=== PATIENT | female | born 1960 | race Caucasian/White ===

== ENCOUNTER 2022-10-09 10:42 | Inpatient (IN) | payer MEDICAID ==
[~2022-10-09] VITALS: Ht 152.4 cm; Wt 54.4 kg
--- NOTE | 2022-10-09 11:00 | NUR ---
BIBA RA78 From Home "generalized weakness xcouple days worse now" BS- 163. PLACED IN BED, AAOX4, BREATHING EVEN AND UNLABORED SATURATING AT 98%RA.
--- NOTE | 2022-10-09 11:23 | NUR ---
PORTACATH AT RIGHT CHEST ACCESSED ASSEPTICALLY, BLOOD SAMPLE OBTAINED , LABELED THEN SENT TO LAB .
--- NOTE | 2022-10-09 11:24 | NUR ---
BLOOD DRAWN AND SENT TO LAB
[2022-10-09 11:33] LABS: BASOPHILS % (AUTO) 0.5 % (0.0-2.0); EOSINOPHILS % (AUTO) 0.6 % (0.0-6.0); HEMATOCRIT 28 % (33-45); LYMPHOCYTES # (AUTO) 2.6 K/uL (0.8-4.8); MEAN CORPUSCULAR HGB CONC 32 g/dl (31.0-36.0); MEAN CORPUSCULAR VOLUME 90 fL (82-100); MONOCYTES # (AUTO) 0.4 K/uL (0.1-1.30); MONOCYTES % (AUTO) 7.8 % (2.0-12.0); NEUTROPHILS % (AUTO) 39.1 % (43.0-81.0); PLATELET COUNT (AUTO) 124 K/uL (150-450); RED BLOOD CELL COUNT(AUTO) 3.13 MIL/uL (4.0-5.2); WHITE BLOOD COUNT (AUTO) 5.1 K/uL (4.3-11.0)
[2022-10-09 11:47] LABS: CALCIUM, SERUM 11.3 mg/dL (8.5-10.1); CARBON DIOXIDE 24 mmol/L (21-32); CHLORIDE 105 mmol/L (98-107); CREATININE 1.2 mg/dL (0.6-1.3); GLUCOSE 128 mg/dL (74-106); POTASSIUM 4.4 mmol/L (3.5-5.1); SODIUM SERUM 135 mmol/L (136-145); UREA NITROGEN, BLOOD 29 mg/dL (7-18)
--- NOTE | 2022-10-09 11:53 | NUR ---
ULTRASOUND AT BEDSIDE
--- NOTE | 2022-10-09 11:53 | NUR ---
SWAB FOR COVID19 AND URINE SAMPLE SENT TO LAB
[2022-10-09 12:06] LABS: ALANINE AMINOTRANSFERASE 162 U/L (12-78); ASPARTATE AMINOTRANSFERASE 593 U/L (15-37); BILIRUBIN,DIRECT 4.3 mg/dL (0.0-0.2); BILIRUBIN,TOTAL 5.3 mg/dL (0.2-1.0); LIPASE 73 U/L (73-393); TOTAL PROTEIN, SERUM 5.3 g/dL (6.4-8.2)
[2022-10-09 12:07] LABS: BILIRUBIN,URINE 2+ (NEGATIVE); COLOR,URINE ORANGE (YELLOW); LEUKOCYTE ESTERASE ,URINE TRACE (NEGATIVE); NITRITE, URINE NEGATIVE (NEGATIVE); PROTEIN,URINE TRACE mg/dl (NEGATIVE); UGLUCOSE NEGATIVE (NEGATIVE)
--- NOTE | 2022-10-09 12:09 | NUR ---
CALLED NURSING SUP REGARDING PT BED
[2022-10-09 12:16] LABS: ALKALINE PHOSPHATASE 1365 U/L (46-116)
[2022-10-09] MEDS ORDERED: LEVE500T9 PO (12:19)
[2022-10-09] MEDS ORDERED: IV CHEMO IV (12:19)
[2022-10-09 12:27] LABS: BACTERIA,URINE None seen /HPF (None Seen); RBC,URINE 0-2 /HPF (0-2); SQUAMOUS EPITHELIAL CELL,UR Rare /HPF (None Seen); URINE AMORPHOUS PHOSPHATES Many /HPF (None Seen); WBC,URINE 0-2 /HPF (0-3)
--- NOTE | 2022-10-09 13:23 | NUR ---
ROOM 306-2
--- NOTE | 2022-10-09 13:53 | NUR ---
REPORT GIVEN TO ELLIOT RN ROOM 306-2 FOR GENE
--- NOTE | 2022-10-09 14:44 | NUR ---
PATIENT TRASFERED AND ADMITTED PER ACLS PROTOCOL
--- NOTE | 2022-10-09 15:00 | NUR ---
JACKET PREPARER NOTES: ADMITTING NOTES. RECEIVED PATIENT FROM KRIS RN, PT AOX3. MOROCCAN SPEAKING. ABLE TO MAKE NEEDS KNOW. PT ON ROOM AIR. NO SOB, NO DYSPNEA NOTED. V/S SIGNS OBTAIN. PATIENT PLACED ON TELE MONITOR READING SINUS RHTHYM AT 86BPM.ABD SOFT NON DISTENDED. + BOWEL SOUNDS IN ALL 4 QUADRANTS. LBM 10/09/22 SOFT FORMED STOOL. PATIENT VOIDED ON 10/09/22. BODY CHECKED DONE. NOTED WITH LEFT BREAST CANCER DRESSING SOILED AND CHANGED. PROCEDURE TOLERATED AND RIGHT SUBCLAVIAN JUAN CARLOS CATH. EDUCATED PATIENT FOR CALL LIGHT ASSISTANCE AND SAFETY. SISTER AT BEDSIDE. CASH MANAGEMENT ASSOCIATE ABLE TRANSLATE IN MOROCCAN. PATIENT VERBALIZE UNDERSTANDING. REMAINS CALM AND STABLE. WILL CONTINUE TO MONITOR. MD NOTIFIED OF ADMISSION.
[2022-10-09 15:56] VITALS: BP 155/84
[2022-10-09] MEDS ORDERED: ACETAMINOPHEN 325 MG TABLET PO PRN (16:00)
[2022-10-09] MEDS ORDERED: ZOLPIDEM TARTRATE 5 MG TABLET PO PRN (16:00)
[2022-10-09] MEDS ORDERED: MAG HYDROX/AL HYDROX/SIMETH 30 ML UDC PO PRN (16:00)
[2022-10-09] MEDS ORDERED: Z GUARD REMEDY 4 OZ OINT TP PRN (16:00)
[2022-10-09] MEDS ORDERED: MAGNESIUM HYDROXIDE 30 ML UDC PO PRN (16:00)
[2022-10-09] MEDS ORDERED: ONDANSETRON HCL/PF 4 MG/2 ML VIAL IVP PRN (16:00)
[2022-10-09] MEDS: LEVETIRACETAM (250 MG) 250 MG TABLET PO SCH (17:07)
--- NOTE | 2022-10-09 18:47 | NUR ---
SALES VENDOR CLOSING NOTES: PATIENT RESTING IN BED. A/O X 4, ESTONIAN SPEAKING, ABLE TO MAKE NEEDS KNOWN. NO C/O PAIN OR DISCOMFORT AT THIS TIME. PATIENT ON ROOM AIR,NO SOB, NO DYSPNEA. DINNER SERVED WITH NO ASPIRATION NOTED. RIGHT SUBCLAVIAN JUAN CARLOS CATH. INTACT. L BREAST CA DRESSING INTACT. NO BLEEDING. NO DISCHARGE NOTED. ON ADMINISTRATIVE LIAISON WITH CURRENT READING SINUS TACHY 120, NO SIGN OF CARDIAC DISTRESS NOTED. NEEDS ATTENDED. SAFETY PRECAUTIONS IMPLEMENTED: BED IN LOWEST LOCKED POSITION, SIDE RAILS X 2, CALL LIGHT AND TRAY TABLE WITHIN EASY REACH. WILL ENDORSE GENE TO TABLE INSPECTOR.
--- NOTE | 2022-10-09 19:10 | NUR ---
RN opening notes Pt is laying in bed comfortably watching TV. Pt is alert and orientedX3. Pt speaks Kyrgyz and able to make needs known. On room air. No SOB. no S/S of distress noted. Tele monitor showed SR/S.tachy. R subclavian porthcath is clean, dry and intact. L chest dressing is intact, clean, dry. safety precautions is maintained. Bed at low position, brakes locked, side rails upX2, hob elevated, bed alarm is on and call light is within reach. will continue to monitor.
[2022-10-09 20:00] VITALS: BP 131/78
[2022-10-10] VITALS (7 sets, daily range): BP systolic 115–130; BP diastolic 65–80
[2022-10-10] MEDS: MORPHINE SULFATE INJ 2 MG/ML DISP.SYRIN IV PRN (01:47)
--- NOTE | 2022-10-10 01:50 | NUR ---
RN notes Pt is complaining of pain on L breast. Pt requesting pain meds. administered morphine 2 mg/iv/prn as ordered for pain. safety precautions is maintained. will continue to monitor.
--- NOTE | 2022-10-10 01:51 | NUR ---
RN notes Per Dr. Leal is okay to use R subclavian permacath. Charge nurse is aware and informed. Addendum: 10/10/22 at 0207 by MILEY REIS RN Pt also informed that they have been using portacath for medications.
[2022-10-10 06:07] LABS: BASOPHILS # (AUTO) 0.2 K/uL (0.0-0.2); BASOPHILS % (AUTO) 3.5 % (0.0-2.0); EOSINOPHILS % (AUTO) 0.8 % (0.0-6.0); HEMATOCRIT 28 % (33-45); HEMOGLOBIN 9.2 g/dL (11.5-14.8); LYMPHOCYTES # (AUTO) 2.3 K/uL (0.8-4.8); LYMPHOCYTES % (AUTO) 43.3 % (20.0-44.0); MEAN CORPUSCULAR HGB CONC 32 g/dl (31.0-36.0); MEAN CORPUSCULAR VOLUME 89 fL (82-100); MONOCYTES # (AUTO) 0.5 K/uL (0.1-1.30); MONOCYTES % (AUTO) 9.6 % (2.0-12.0); NEUTROPHILS # (AUTO) 2.3 K/uL (1.8-8.9); NEUTROPHILS % (AUTO) 42.8 % (43.0-81.0); PLATELET COUNT (AUTO) 117 K/uL (150-450); RED BLOOD CELL COUNT(AUTO) 3.19 MIL/uL (4.0-5.2); WHITE BLOOD COUNT (AUTO) 5.4 K/uL (4.3-11.0)
[2022-10-10 06:12] LABS: BILIRUBIN,DIRECT 4.8 mg/dL (0.0-0.2); BILIRUBIN,TOTAL 5.7 mg/dL (0.2-1.0); CALCIUM, SERUM 11.7 mg/dL (8.5-10.1); CREATININE 1.2 mg/dL (0.6-1.3); MAGNESIUM 1.8 mg/dL (1.8-2.4); PHOSPHORUS 3.3 mg/dL (2.5-4.9); POTASSIUM 4.6 mmol/L (3.5-5.1); TOTAL PROTEIN, SERUM 5.1 g/dL (6.4-8.2)
--- NOTE | 2022-10-10 06:52 | NUR ---
RN notes Wound care nurse LETA Abdi at the bedside.
--- NOTE | 2022-10-10 06:54 | NUR ---
WOUND CARE CONSULT: PT PRESENTS WITH LEFT CHEST RAISED LESIONS, PRESENT ON ADMISSION. RECOMMENDATIONS MADE FOR SKIN PROTECTION AND WOUND CARE. DISCUSSED WITH NURSING STAFF. PT USING PURE WICK SYSTEM FOR URINARY INCONTINENCE. PT ABLE TO ASSIST WITH TURNING AND REPOSITIONING IN BED. MD IN AGREEMENT WITH PLAN OF CARE. Addendum: 10/10/22 at 0659 by JULY MELO WNDNU EDEMA NOTED TO BILATERAL LOWER EXTREMITIES,PRESENT ON ADMISSION.
--- NOTE | 2022-10-10 06:57 | NUR ---
RN closing notes Pt is resting in bed comfortably. Pt is alert and orientedX3. Pt speaks Gibraltarian and able to make needs known. On room air. No SOB. no S/S of distress noted. Tele monitor showed SR hr at 100. R subclavian porthcath is clean, dry and intact. L chest dressing is intact, clean, dry. Kept Pt clean, dry and comfortable. safety precautions is maintained. Bed at low position, brakes locked, side rails upX2, hob elevated, bed alarm is on and call light is within reach. Will endorse to am nurse for GENE.
[2022-10-10] MEDS ORDERED: Z GUARD REMEDY 4 OZ OINT TP PRN (07:00)
[2022-10-10] MEDS: LEVETIRACETAM (250 MG) 250 MG TABLET PO SCH ×2 (08:57→16:19)
--- NOTE | 2022-10-10 15:26 | NUR ---
Patient requested mechanical soft diet due to not able to chew well the food. Charge nurse/MD informed
[2022-10-10] MEDS: ENSURE ENLIVE 237 ML LIQUID (VANILLA) PO SCH (17:07)
[2022-10-10] MEDS: IV NS 0.9% 1,000 ML IV PRN (18:40)
--- NOTE | 2022-10-10 19:30 | NUR ---
CLINICAL REHABILITATION LIAISON OPENING NOTE RECEIVED PT RESTING IN BED, VERBALLY RESPONSIVE. A/O X3 AND ABLE TO MAKE NEEDS KNOWN. PT ON O2 @ 2LPM VIA NC, TOLERATING WELL. NO SOB OR S/S OF RESPIRATORY DISTRESS. BREATHING EVEN AND UNLABORED. ON EXTERNAL PRINCIPAL SOLUTIONS ARCHITECT READING ST 111 BPM. IV ACCESS R SUBCLAVIAN PORTACATH RUNNING NS @ 75 ML/HR. SAFETY PRECAUTIONS IN PLACE. BED IN LOWEST LOCKED POSITION, HOB ELEVATED, SIDE RAILS UP X3, AND CALL LIGHT AND TABLE WITHIN REACH. ALL NEEDS MET AT THIS TIME.
--- NOTE | 2022-10-10 19:38 | NUR ---
RN closing notes Patient is awake and resting in bed comfortably, A/OX3, Occitan speaking but understand zimbabwean, sister on bedside. Pt delayed on responses but able to make needs known. On room air, SPO2 at 95. No SOB. no S/S of distress noted. Patient has standby oxygen at 2L which patient uses earlier when SPO2 drops to 93-94. Tele monitor showed SR hr at 100. R subclavian porthcath is clean, dry and intact. L chest dressing is intact, clean, dry. Kept Pt clean, dry and comfortable. safety precautions is maintained. Bed at low position, brakes locked, side rails upX2, hob elevated, bed alarm is on and call light is within reach. Will endorse to pm nurse for GENE.
[2022-10-11] VITALS: BP 127/66
[2022-10-11 04:00] VITALS: BP 138/73
--- NOTE | 2022-10-11 06:35 | NUR ---
DIRECTOR NURSING SERVICE CLOSING NOTE PT RESTING IN BED, VERBALLY RESPONSIVE. A/O X3 AND ABLE TO MAKE NEEDS KNOWN. PT ON O2 @ 2LPM VIA NC, TOLERATING WELL. NO SOB OR S/S OF RESPIRATORY DISTRESS. BREATHING EVEN AND UNLABORED. ON EXTERNAL CONVERTER OPERATOR READING ST 103 BPM. IV ACCESS R SUBCLAVIAN PORTACATH RUNNING NS @ 75 ML/HR. ALL DUE MEDS GIVEN ORDERED. NO COMPLAINTS OF PAIN OR DISCOMFORT AT THIS TIME. KEPT CLEAN AND DRY. SAFETY PRECAUTIONS IN PLACE AT ALL TIMES. BED IN LOWEST LOCKED POSITION, HOB ELEVATED, SIDE RAILS UP X3, AND CALL LIGHT AND TABLE WITHIN REACH. ALL NEEDS MET AT THIS TIME AND WILL ENDORSE TO ONCOMING NURSE FOR GENE.
--- NOTE | 2022-10-11 07:46 | NUR ---
BUILDING MECHANIC OPENING NOTE PT RESTING IN BED, VERBALLY RESPONSIVE. A/O X3 AND ABLE TO MAKE NEEDS KNOWN. PT ON O2 @ 2LPM VIA NC, TOLERATING WELL. NO SOB OR S/S OF RESPIRATORY DISTRESS. BREATHING EVEN AND UNLABORED. ON EXTERNAL ARMORED VEHICLE OFFICER READING ST 102 BPM. IV ACCESS R SUBCLAVIAN PORTACATH RUNNING NS @ 75 ML/HR. NO COMPLAINTS OF PAIN OR DISCOMFORT AT THIS TIME. KEPT CLEAN AND DRY. SAFETY PRECAUTIONS IN PLACE AT ALL TIMES. BED IN LOWEST LOCKED POSITION, HOB ELEVATED, SIDE RAILS UP X3, AND CALL LIGHT AND TABLE WITHIN REACH. WILL CONTINUE TO MONITOR THE PATIENT
[2022-10-11 07:59] LABS: ALBUMIN 1.9 g/dL (3.4-5.0); BILIRUBIN,TOTAL 7.5 mg/dL (0.2-1.0); CREATININE 1.3 mg/dL (0.6-1.3); MAGNESIUM 2.2 mg/dL (1.8-2.4); PHOSPHORUS 3.8 mg/dL (2.5-4.9); TOTAL PROTEIN, SERUM 5.5 g/dL (6.4-8.2)
[2022-10-11 08:00] VITALS: BP 149/65
[2022-10-11 08:39] LABS: THYROID STIMULATING HORMONE 1.581 uIU/mL (0.358-3.74)
[2022-10-11] MEDS: PROSOURCE / PROSTAT (PYXIS) 30 ML UDC GT SCH (09:18)
[2022-10-11] MEDS: LEVETIRACETAM (250 MG) 250 MG TABLET PO SCH ×2 (09:18→16:24)
[2022-10-11] MEDS: ENSURE ENLIVE 237 ML LIQUID (VANILLA) PO SCH ×2 (09:19→16:24)
[2022-10-11 09:37] LABS: BASOPHILS # (AUTO) 0.1 K/uL (0.0-0.2); BASOPHILS % (AUTO) 0.9 % (0.0-2.0); EOSINOPHILS % (AUTO) 0.9 % (0.0-6.0); HEMATOCRIT 33 % (33-45); HEMOGLOBIN 10.3 g/dL (11.5-14.8); LYMPHOCYTES # (AUTO) 3.1 K/uL (0.8-4.8); LYMPHOCYTES % (AUTO) 48.2 % (20.0-44.0); MEAN CORPUSCULAR HGB CONC 31 g/dl (31.0-36.0); MEAN CORPUSCULAR VOLUME 91 fL (82-100); MONOCYTES # (AUTO) 0.4 K/uL (0.1-1.30); MONOCYTES % (AUTO) 6.8 % (2.0-12.0); NEUTROPHILS # (AUTO) 2.8 K/uL (1.8-8.9); NEUTROPHILS % (AUTO) 43.2 % (43.0-81.0); PLATELET COUNT (AUTO) 131 K/uL (150-450); RED BLOOD CELL COUNT(AUTO) 3.62 MIL/uL (4.0-5.2); WHITE BLOOD COUNT (AUTO) 6.5 K/uL (4.3-11.0)
[2022-10-11 15:22] VITALS: BP 137/70
[2022-10-11] MEDS: IV NS 0.9% 1,000 ML IV PRN (15:35)
[2022-10-11 18:07] LABS: BAND % (MANUAL) 3 % (0.0-5.0); EOSINOPHILS % (MANUAL) 2 % (0-4); LYMPHOCYTES % (MANUAL) 26 % (16-48); MONOCYTES % (MANUAL) 8 % (0-11.0); NEUTROPHILS % (MANUAL) 61 (42-76)
--- NOTE | 2022-10-11 18:41 | NUR ---
RN closing notes Patient is awake and resting in bed comfortably, A/OX3, Divehi speaking but understand georgian, sister on bedside. Pt has slurred speech, delayed on responses but able to make needs known. On NC 2L. No SOB. no S/S of distress noted. R subclavian porthcath is clean, dry and intact. L chest was cleaned, xerofoam applied & covered with gauze, taped as ordered. Dressing is intact, clean, dry. Kept Pt clean, dry and comfortable. safety precautions is maintained. Bed at low position, brakes locked, side rails upX2, hob elevated, bed alarm is on and call light is within reach. Will endorse to pm nurse for GENE.
--- NOTE | 2022-10-11 19:30 | NUR ---
MS RN OPENING NOTE RECEIVED PT RESTING IN BED. A/O X3 AND ABLE TO MAKE NEEDS KNOWN. PT ON O2 @ 2LPM VIA NC, TOLERATING WELL. NO SOB NOTED. NO S/S OF RESPIRATORY DISTRESS NOTED. BREATHING EVEN AND UNLABORED. IV ACCESS R SUBCLAVIAN PORTACATH RUNNING NS @ 100 ML/HR. TOLERATING WELL.ALL SAFETY PRECAUTIONS IN PLACE. BED IN LOWEST LOCKED POSITION, HOB ELEVATED, SIDE RAILS UP X3, CALL LIGHT AND TABLE WITHIN REACH. ALL NEEDS ATTENDED. WILL CONTINUE TO MONITOR CLOSELY.
[2022-10-11 20:00] VITALS: BP 143/71
[2022-10-12] MEDS: IV NS 0.9% 1,000 ML IV PRN (03:26)
--- NOTE | 2022-10-12 06:41 | NUR ---
MS RN CLOSING NOTE PT RESTING IN BED. A/O X3 AND ABLE TO MAKE NEEDS KNOWN. PT ON O2 @ 2LPM VIA NC, TOLERATING WELL. NO SOB NOTED. NO S/S OF RESPIRATORY DISTRESS NOTED. BREATHING EVEN AND UNLABORED. IV ACCESS R SUBCLAVIAN PORTACATH RUNNING NS @ 100 ML/HR. TOLERATING WELL. ALL SAFETY PRECAUTIONS IN PLACE. BED IN LOWEST LOCKED POSITION, HOB ELEVATED, SIDE RAILS UP X3, CALL LIGHT AND TABLE WITHIN REACH. ALL NEEDS ATTENDED. WILL ENDORSE FOR GENE.
[2022-10-12 07:02] LABS: HEMATOCRIT 31 % (33-45); HEMOGLOBIN 9.8 g/dL (11.5-14.8); MEAN CORPUSCULAR HGB CONC 32 g/dl (31.0-36.0); MEAN CORPUSCULAR VOLUME 92 fL (82-100); PLATELET COUNT (AUTO) 119 K/uL (150-450); RED BLOOD CELL COUNT(AUTO) 3.36 MIL/uL (4.0-5.2)
--- NOTE | 2022-10-12 07:10 | NUR ---
MS RN OPENING NOTE PT RESTING IN BED. A/O X3 AND ABLE TO MAKE NEEDS KNOWN. PT ON O2 @ 2LPM VIA NC, TOLERATING WELL. NO SOB NOTED. NO S/S OF RESPIRATORY DISTRESS NOTED. BREATHING EVEN AND UNLABORED. IV ACCESS R SUBCLAVIAN PORTACATH RUNNING NS @ 100 ML/HR. TOLERATING WELL. ALL SAFETY PRECAUTIONS IN PLACE. BED IN LOWEST LOCKED POSITION, HOB ELEVATED, SIDE RAILS UP X3, CALL LIGHT AND TABLE WITHIN REACH. ALL NEEDS ATTENDED. WILL CONTINUE TO MONITOR THE PATIENT
[2022-10-12 07:29] LABS: CALCIUM, SERUM 11.6 mg/dL (8.5-10.1); CREATININE 1.4 mg/dL (0.6-1.3); PHOSPHORUS 3.9 mg/dL (2.5-4.9); POTASSIUM 4.9 mmol/L (3.5-5.1)
[2022-10-12 08:00] VITALS: BP 141/77
[2022-10-12 08:06] LABS: IMMUNOGLOBULIN A, SERUM 381 mg/dL (87-352); IMMUNOGLOBULIN G, SERUM 1227 mg/dL (586-1602); IMMUNOGLOBULIN M, SERUM 134 mg/dL (26-217)
[2022-10-12] MEDS: PROSOURCE / PROSTAT (PYXIS) 30 ML UDC GT SCH (08:45)
[2022-10-12] MEDS: LEVETIRACETAM (250 MG) 250 MG TABLET PO SCH ×2 (08:45→16:11)
[2022-10-12] MEDS: ENSURE ENLIVE 237 ML LIQUID (VANILLA) PO SCH ×2 (08:46→16:11)
[2022-10-12 09:04] LABS: BAND % (MANUAL) 7 % (0.0-5.0); EOSINOPHILS % (MANUAL) 1 % (0-4); LYMPHOCYTES % (MANUAL) 15 % (16-48); MONOCYTES % (MANUAL) 10 % (0-11.0); NEUTROPHILS % (MANUAL) 67 (42-76)
[2022-10-12] MEDS ORDERED: PAMIDRONATE 90 MG in IV NS 0.9% 500 ML IV ONE (11:00)
--- NOTE | 2022-10-12 16:50 | NUR ---
Was able to contact patient's sister-Connie Rizo ([phone]), speaks romanian with [employer], aided by daughter Lupe as workers compensation attorney. Given updates on patient's condition and explained the needed medical records to be sourced from primary oncologist Bora Herrera MD. Patient sister Connie will come tomorrow between 11-12pm to sign the authorization form. Pt sister Connie provided contact info of Dr Stacey Herrera: [facility] [place], [facility]. p- ; F- . Office is closed on Sundays.
--- NOTE | 2022-10-12 18:44 | NUR ---
RN closing notes Patient is resting in bed comfortably, A/OX2, American speaking but understand luxembourgish. Brother Saleem on bedside. Also spoke with the sister earlier for updates. Pt has slurred speech, delayed on responses and continue to get fatigue and in declining condition. POLST on file signed by patient's brother Saleem to be signed and completed by , charge nurse informed. Patient on NC 2L. No SOB. no S/S of distress noted at this time. R subclavian porthcath is clean, dry and intact. L chest was cleaned, xerofoam applied & covered with gauze, taped as ordered. Dressing is intact, clean, dry. Kept Pt clean, dry and comfortable. safety precautions is maintained. Bed at low position, brakes locked, side rails upX2, hob elevated, bed alarm is on and call light is within reach. Will endorse to pm nurse for GENE.
--- NOTE | 2022-10-12 19:18 | NUR ---
MS RN OPENING NOTE RECEIVED PT RESTING IN BED. A/O X3 . PATIENT VERY WEAK AND ONLY NODS HER HEAD FOR RESPONSE. NOT VERBALLY COMMUNICATING. SOME FAMILY MEMBERS AT BED SIDE. PT ON O2 @ 2LPM VIA NC, TOLERATING WELL. NO SOB NOTED. NO S/S OF RESPIRATORY DISTRESS NOTED. BREATHING EVEN AND UNLABORED. IV ACCESS R SUBCLAVIAN PORTACATH INTACT. DRESSING FOR BREAST CANCER INTACT.ALL SAFETY PRECAUTIONS IN PLACE. BED IN LOWEST LOCKED POSITION, HOB ELEVATED, SIDE RAILS UP X3, CALL LIGHT AND TABLE WITHIN REACH. ALL NEEDS ATTENDED. WILL CONTINUE TO MONITOR CLOSELY.
[2022-10-12] MEDS: MORPHINE SULFATE INJ 2 MG/ML DISP.SYRIN IV PRN (20:47)
[2022-10-13 04:00] VITALS: BP 100/58
[2022-10-13 06:00] LABS: EOSINOPHILS % (AUTO) 0.3 % (0.0-6.0); HEMATOCRIT 30 % (33-45); HEMOGLOBIN 9.7 g/dL (11.5-14.8); LYMPHOCYTES # (AUTO) 3.2 K/uL (0.8-4.8); LYMPHOCYTES % (AUTO) 58.2 % (20.0-44.0); MEAN CORPUSCULAR HGB CONC 32 g/dl (31.0-36.0); MEAN CORPUSCULAR VOLUME 92 fL (82-100); MONOCYTES # (AUTO) 0.4 K/uL (0.1-1.30); MONOCYTES % (AUTO) 7.8 % (2.0-12.0); NEUTROPHILS # (AUTO) 1.9 K/uL (1.8-8.9); NEUTROPHILS % (AUTO) 33.7 % (43.0-81.0); PLATELET COUNT (AUTO) 101 K/uL (150-450); RED BLOOD CELL COUNT(AUTO) 3.31 MIL/uL (4.0-5.2); WHITE BLOOD COUNT (AUTO) 5.5 K/uL (4.3-11.0)
--- NOTE | 2022-10-13 06:20 | NUR ---
MS RN CLOSING NOTE PT RESTING IN BED WITH CLOSED EYES. RESPONSIVE TO TACTILE STIMULI . PATIENT VERY WEAK AND ONLY SOMETIMES NODS HER HEAD FOR RESPONSE. NOT VERBALLY COMMUNICATING. PT ON O2 @ 2LPM VIA NC, TOLERATING WELL. NO SOB NOTED. NO S/S OF RESPIRATORY DISTRESS NOTED. BREATHING EVEN AND UNLABORED. IV ACCESS R SUBCLAVIAN PORTACATH INTACT. DRESSING FOR BREAST CANCER INTACT. PUERWICK INTACT. URINE OUTPUT NOTED 150 ML. PATIENT ONLY CONSUMED 10 ML. ALL SAFETY PRECAUTIONS IN PLACE. BED IN LOWEST LOCKED POSITION, HOB ELEVATED, SIDE RAILS UP X3, CALL LIGHT AND TABLE WITHIN REACH. ALL NEEDS ATTENDED. WILL ENDORSE FOR GENE.
[2022-10-13 06:22] LABS: CALCIUM, SERUM 11.6 mg/dL (8.5-10.1); CREATININE 1.9 mg/dL (0.6-1.3); POTASSIUM 5.4 mmol/L (3.5-5.1)
--- NOTE | 2022-10-13 07:42 | NUR ---
MS RN OPENING NOTES RECEIVED PT RESTING IN BED. A/O X1 . PATIENT VERY WEAK. NOT VERBALLY COMMUNICATING, NOT RESPONSIVE TO TACTILE STIMULI. PT ON O2 @ 2LPM VIA NC, TOLERATING WELL. NO SOB NOTED. NO S/S OF RESPIRATORY DISTRESS NOTED. BREATHING EVEN AND UNLABORED. PATIENT IS USING PUREWICK. IV ACCESS R SUBCLAVIAN PORTACATH INTACT. DRESSING FOR BREAST CANCER C/D/I. ALL SAFETY PRECAUTIONS IN PLACE. BED IN LOWEST LOCKED POSITION, HOB ELEVATED, SIDE RAILS UP X3, CALL LIGHT AND TABLE WITHIN REACH. ALL NEEDS ATTENDED. WILL CONTINUE TO MONITOR CLOSELY.
[2022-10-13 08:00] VITALS: BP 112/60
[2022-10-13] MEDS ORDERED: LACTULOSE 10 G/15 ML UDC (PYXIS) PO PRN (08:30)
[2022-10-13] MEDS ORDERED: SODIUM POLYSTYRENE SULFONATE 15 G/60 ML BOTTLE PO ONE (08:30)
[2022-10-13] MEDS: IV 1/2NS 1000 ML 1,000 ML IV SCH ×2 (08:55→21:50)
[2022-10-13] MEDS: PROSOURCE / PROSTAT (PYXIS) 30 ML UDC GT SCH (09:00)
[2022-10-13] MEDS: LEVETIRACETAM (250 MG) 250 MG TABLET PO SCH ×2 (09:00→16:19)
[2022-10-13] MEDS: ENSURE ENLIVE 237 ML LIQUID (VANILLA) PO SCH ×2 (09:00→16:19)
--- NOTE | 2022-10-13 09:15 | NUR ---
RN NOTES DR GEE SEEN PT THIS MORNING AND SIGNED THE DNR/DNI POLTS THAT THE PT'S BROTHER MARIMAR CONSENTED. ALSO FAXED THE REQUEST TO OBTAINED PATHOLOGY/MEDICAL RECORD TO [facility].
--- NOTE | 2022-10-13 09:31 | NUR ---
RN NOTES PATIENTS ALL MORNING MEDS NOT ADMINISTER, PATIENT TOO WEAK AND NOT OPENING HER MOUTH.
[2022-10-13 16:00] VITALS: BP 96/54
[2022-10-13 16:07] LABS: *ANA ANTI-DNA(DS) AB, QN <1 IU/mL (0-9); *ANA ANTI-JO-1 <0.2 AI (0.0-0.9); *ANA ANTICHROMATIN ANTIBODY <0.2 AI (0.0-0.9); *ANA RNP ANTIBODIES 2.6 AI (0.0-0.9); *ANA SJOGREN'S ANTI-SS-A <0.2 AI (0.0-0.9); *ANA SJOGREN'S ANTI-SS-B <0.2 AI (0.0-0.9); *ANAANTI-SCLERODERMA-70 AB <0.2 AI (0.0-0.9); *ANASMITH AB <0.2 AI (0.0-0.9)
[2022-10-13 17:06] LABS: *ANA ANTI-CENTROMERE B AB <0.2 AI (0.0-0.9)
[2022-10-13] MEDS: MORPHINE SULFATE INJ 2 MG/ML DISP.SYRIN IV PRN (17:39)
--- NOTE | 2022-10-13 17:41 | NUR ---
RN NOTES PT NOTED GRIMACING AND RESTLESS. FAMILY AT BEDSIDE. PRN MORPHINE 2MG/ML IVP ADMINISTERED AT 1739. WILL CONTINUE TO MONITOR AND REASSESS PT.
--- NOTE | 2022-10-13 18:44 | NUR ---
MS RN CLOSING NOTES PATIENT IN BED SLEEPING WITH FAMILY AT BEDSIDE, A/O X0, NOT VERBALLY COMMUNICATING, STILL RESPONSIVE TO TACTILE/PAIN STIMULI. PROFOUNDLY WEAK AND FRAGILE. ON SUPPLEMENTAL 02 VIA N/C @ 2LPM AT THIS TIME, BREATHING EVENLY AND UNLABORED, NO SIGNS OF DISTRESS NOTED AT THIS TIME. PT WITH RIGHT SUBCLAVIAN JUAN CARLOS-CATH IN PLACE, INTACT AND PATENT. IVF OF 1/2 NS INFUSING ORDERED. ALL SAFETY MEASURES KEPT IN PLACE: BED IN LOWEST LOCKED POSITION, SIDE-RAILS UP X2. CALL LIGHT WITHIN REACH. WILL ENDORSE TO THE NIGHTSHIFT NURSE FOR GENE.
--- NOTE | 2022-10-13 19:30 | NUR ---
MS RN OPENING NOTE PT RESTING IN BED WITH CLOSED EYES. RESPONSIVE TO TACTILE STIMULI . PATIENT VERY WEAK AND ONLY SOMETIMES NODS HER HEAD FOR RESPONSE. NOT VERBALLY COMMUNICATING. SISTER, LETICIA , BROTHER THOMAS AND 1 FAMILY MEMBER AT BED SIDE. PT ON O2 @ 2LPM VIA NC, TOLERATING WELL. NO SOB NOTED. NO S/S OF RESPIRATORY DISTRESS NOTED. BREATHING EVEN AND UNLABORED. IV ACCESS R SUBCLAVIAN PORTACATH INTACT AND PATENT . RUNNING 1/2 NS AT 75 ML/HR. DRESSING FOR BREAST CANCER INTACT. PUERWICK INTACT. ALL SAFETY PRECAUTIONS IN PLACE. BED IN LOWEST LOCKED POSITION, HOB ELEVATED, SIDE RAILS UP X3, CALL LIGHT AND TABLE WITHIN REACH. ALL NEEDS ATTENDED. WILL CONTINUE TO MONITOR CLOSELY.
--- NOTE | 2022-10-13 22:04 | NUR ---
LETA NOTES 2199 BLOOD SUGAR RESULT WAS 125. NO INSULIN COVERAGE. Addendum: 10/13/22 at 2206 by ROSALIE MCGEE RN LETA NOTES WRONG ENTRY.
[2022-10-14] MEDS: MORPHINE SULFATE INJ 2 MG/ML DISP.SYRIN IV PRN (05:29)
--- NOTE | 2022-10-14 05:46 | NUR ---
RN NOTES NOTED WITH FACIAL GRIMACING AND MOANING. PRN MORPHINE GIVEN ORDERED FOR PAIN AT 0529 AM. WILL ASSESS IN 30 MIN.
--- NOTE | 2022-10-14 06:36 | NUR ---
MS RN CLOSING NOTE PT RESTING IN BED WITH CLOSED EYES. RESPONSIVE TO TACTILE STIMULI . PATIENT VERY WEAK AND ONLY SOMETIMES NODS HER HEAD FOR RESPONSE. NOT VERBALLY COMMUNICATING. PT ON O2 @ 2LPM VIA NC, TOLERATING WELL. NO SOB NOTED. NO S/S OF RESPIRATORY DISTRESS NOTED. BREATHING EVEN AND UNLABORED. IV ACCESS R SUBCLAVIAN PORTACATH INTACT AND PATENT . RUNNING 1/2 NS AT 75 ML/HR. DRESSING FOR BREAST CANCER INTACT. PUERWICK INTACT. ALL SAFETY PRECAUTIONS IN PLACE. BED IN LOWEST LOCKED POSITION, HOB ELEVATED, SIDE RAILS UP X3, CALL LIGHT AND TABLE WITHIN REACH. ALL NEEDS ATTENDED. WILL ENDORSE FOR GENE.
[2022-10-14 07:07] LABS: *SPE A/G RATIO 0.8 (0.7-1.7); *SPE ALPHA-1-GLOBULIN 0.2 g/dL (0.0-0.4); *SPE ALPHA-2-GLOBULIN 0.5 g/dL (0.4-1.0); *SPE M-SPIKE Not Observed g/dL (Not Observed)
--- NOTE | 2022-10-14 07:20 | NUR ---
MS RN CLOSING NOTE PT RESTING IN BED NO EYE OPENING, LOCALIZES PAIN. PATIENT APPEARS LETHARGIC. PT ON O2 @ 3LPM VIA NC, WITH SOME RESPIRATORY EFFORT NOTED. OXYGEN SATURATION AT 90%. NOTIFIED AND CHANGED TO SIMPLE OXYGEN AT 5LPM SATURATING AT 96%. TOLERATING WELL. BREATHING MUCH BETTER NOW. IV ACCESS R SUBCLAVIAN PORTACATH INTACT AND PATENT. WITH DRESSING ON LEFT CHEST RELATED TO BREAST CANCER, DRY AND INTACT. WITH PUREWICK INTACT. ALL SAFETY PRECAUTIONS IN PLACE. BED IN LOWEST LOCKED POSITION, HOB ELEVATED, SIDE RAILS UP X3, CALL LIGHT AND TABLE WITHIN REACH. PATIENT ON COMFORT CARE. ON DNR/ DNI STATUS. WILL CONTINUE WITH PLAN OF CARE. Addendum: 10/14/22 at 2005 by ELLIOT PRICE RN OPENING NOTE INSTEAD OF CLOSING
--- NOTE | 2022-10-14 08:35 | NUR ---
MS RN NOTE NOTED TO HAVE BP OF 76/45, HR 89/ ON DNR/DNI STATUS, NO SIGNS OF DISTRESS NOTED. MD NOTIFIED. CONTINUE PATIENT CARE.
[2022-10-14] MEDS: PROSOURCE / PROSTAT (PYXIS) 30 ML UDC GT SCH (09:00)
[2022-10-14] MEDS: ENSURE ENLIVE 237 ML LIQUID (VANILLA) PO SCH (09:00)
[2022-10-14] MEDS: LEVETIRACETAM (250 MG) 250 MG TABLET PO SCH (09:00)
--- NOTE | 2022-10-14 09:35 | NUR ---
MS RN NOTE PATIENT'S LATEST BP 68/40, HR 80. FAMILY AT BEDSIDE. EXPLAINED CONDITION AND MANAGEMENT. VERBALIZED UNDERSTANDING AND APPRECIATION.
--- NOTE | 2022-10-14 11:30 | NUR ---
MS RN NOTE LATEST BP AT 50/34, HR 88. IN STABLE CONDITION NOT IN DISTRESS.
--- NOTE | 2022-10-14 13:25 | NUR ---
MS RN NOTE PATIENT AT 1305H. NO PULSE NO HR. POST MORTEM CARE DONE. PROTOCOL FOLLOWED REGARDING PATIENT POSTMORTEM CARE AND ENDORSEMENT. DOCUMENTED ACCORDINGLY, AND ENDORSED ACCORDINGLY. DR. ORTIZ NOTIFIED THROUGH MEASUREMENT SPECIALIST STUDENT KIRBY. MORTUARY CALLED FOR MUSIC MIXER. ENDORSED ACCORDINGLY.
== END 2022-10-14 13:05 | DRG 382 ==
LOC: EDBD 10:42 → ER 10:44 → TELE 13:35 → MED 10-11 09:19
PROVIDERS: ADMIT Internal Medicine; ATTEND Internal Medicine
DX: C50.912 Malignant neoplasm of unspecified site of left female breast (principal); N17.0 Acute kidney failure with tubular necrosis; J96.01 Acute respiratory failure with hypoxia; G93.41 Metabolic encephalopathy; E43 Unspecified severe protein-calorie malnutrition; E72.20 Disorder of urea cycle metabolism, unspecified; D69.6 Thrombocytopenia, unspecified; J90 Pleural effusion, not elsewhere classified; C78.7 Secondary malignant neoplasm of liver and intrahepatic bile duct; E87.1 Hypo-osmolality and hyponatremia; E88.09 Other disorders of plasma-protein metabolism, not elsewhere classified; D63.8 Anemia in other chronic diseases classified elsewhere; I48.91 Unspecified atrial fibrillation; I10 Essential (primary) hypertension; I87.2 Venous insufficiency (chronic) (peripheral); Z20.822 Contact with and (suspected) exposure to COVID-19; Z66 Do not resuscitate; Z51.5 Encounter for palliative care; Z88.8 Allergy status to other drugs, medicaments and biological substances; Z79.899 Other long term (current) drug therapy; G40.909 Epilepsy, unspecified, not intractable, without status epilepticus; Z90.12 Acquired absence of left breast and nipple; Z92.21 Personal history of antineoplastic chemotherapy; E83.52 Hypercalcemia; D50.9 Iron deficiency anemia, unspecified; R74.01 Elevation of levels of liver transaminase levels; E80.6 Other disorders of bilirubin metabolism; E87.5 Hyperkalemia; Z68.23 Body mass index [BMI] 23.0-23.9, adult
CPT/HCPCS: 36415; 70450-TC; 71045-TC; 76705-TC; 80048-TC; 80053-TC; 80076-TC; 81001; 82140-TC; 82378; 82607-TC; 82728-TC; 82784; 82962-TC; 83540-TC; 83605-TC; 83690-TC; 83735-TC; 83880; 84100-TC; 84155; 84165; 84439-TC; 84443-TC; 84484-TC; 85025-TC; 86140-TC; 86225; 86235; 86300; 86334; 86431-TC; 86706; 86803; 87040-TC; 87081-TC; 87340; 93970-TC; 97110-TC; 97112-TC; 97530-TC; A4223; A6253; A6403; C9803; G0378; J2270; J2430; J3490; J7030; J7040; J7042